=== PATIENT | female | born 1950 | race Two or more races ===

== ENCOUNTER 2017-12-14 14:13 | Outpatient (CLI) | payer OTHER ==
[~2017-12-14 14:13] MED LIST: ACETAMINOOPHEN-1 TAB PO; CIPRO750 MG PO; CLONAZEPAM1 MG PO; COLACE100 MG PO; NEURONTIN800 MG PO
== END 2017-12-14 17:00 | disposition home or self-care (01) ==
LOC: MRI 14:13
DX: M51.36 Other intervertebral disc degeneration, lumbar region (principal); Z98.1 Arthrodesis status
CPT/HCPCS: 72148

== ENCOUNTER 2019-07-16 06:15 | Day surgery (SDC) | payer OTHER ==
[~2019-07-16 06:15] MED LIST changes: +CYCLOBENZAPRINE10 MG PO; +LEVOTHYROXINE25 MCG PO; +TRAMADOL HCL50 MG PO
[2019-07-16] MEDS ORDERED: ULTRACET PO (10:19)
[2019-07-17] MEDS ORDERED: MACROBID 100 M100 MG PO (15:06)
== END 2019-07-16 13:42 | disposition home or self-care (01) ==
LOC: CIR.AMB 06:15
DX: R15.9 Full incontinence of feces (principal)
CPT/HCPCS: 64581; C1778

== ENCOUNTER 2019-07-17 12:23 | Emergency (ER) | payer OTHER ==
[~2019-07-17] VITALS: Ht 175.3 cm; Wt 68.0 kg
[~2019-07-17 12:23] MED LIST changes: +ULTRACET PO
[2019-07-17] MEDS ORDERED: MACROBID 100 M100 MG PO (15:06)
[2019-07-24] MEDS ORDERED: ENDOMETRIN100 MG PO (13:57)
[2019-07-24] MEDS ORDERED: GABAPENTIN800 MG PO (13:58)
== END 2019-07-17 15:19 | disposition home or self-care (01) ==
LOC: ER 12:23
DX: N39.0 Urinary tract infection, site not specified (principal)

== ENCOUNTER 2019-07-26 05:51 | Day surgery (SDC) | payer OTHER ==
[~2019-07-26 05:51] MED LIST changes: +ENDOMETRIN100 MG PO; +GABAPENTIN800 MG PO; +MACROBID 100 M100 MG PO
[2019-07-26] MEDS ORDERED: PERCOCET 5-3251 EACH PO (07:36)
[2019-08-02] MEDS ORDERED: ULTRACET PO (07:44)
[2019-08-02] MEDS ORDERED: PERCOCET 5-3251 EACH PO (07:55)
== END 2019-07-26 10:30 | disposition home or self-care (01) ==
LOC: CIR.AMB 05:51
DX: R15.9 Full incontinence of feces (principal)
CPT/HCPCS: 64590; C1767

== ENCOUNTER → 2019-08-02 | Day surgery (SDC) | payer OTHER ==
[~2019-08-02] MED LIST changes: +PERCOCET 5-3251 EACH PO
== END | disposition home or self-care (01) ==
LOC: CIR.AMB 05:15
DX: R15.9 Full incontinence of feces (principal)

== ENCOUNTER 2020-10-16 06:00 | Day surgery (SDC) | payer OTHER | END 2020-10-16 16:35 | disposition home or self-care (01) | LOC: CIR.AMB 06:00 | PROVIDERS: ATTEND Colon & Rectal Surgery | DX: R15.9 Full incontinence of feces (principal); Z20.828 Contact with and (suspected) exposure to other viral communicable diseases | CPT/HCPCS: 64581; C1778 ==

== ENCOUNTER 2021-08-09 10:54 | Outpatient (CLI) | payer OTHER | END 2021-08-09 11:16 | disposition home or self-care (01) | LOC: MRI 10:54 | DX: M51.37 Other intervertebral disc degeneration, lumbosacral region (principal); M54.16 Radiculopathy, lumbar region; N60.11 Diffuse cystic mastopathy of right breast; N60.12 Diffuse cystic mastopathy of left breast | CPT/HCPCS: 72148 ==

== ENCOUNTER 2022-01-31 08:49 | Outpatient (CLI) | payer OTHER | END 2022-01-31 08:55 | disposition home or self-care (01) | LOC: SONOGRAMA 08:49 | PROVIDERS: ATTEND Internal Medicine Gastroenterology | DX: K75.9 Inflammatory liver disease, unspecified (principal) ==

== ENCOUNTER 2022-11-11 10:43 | Outpatient (CLI) | payer OTHER | END 2022-11-11 10:47 | disposition home or self-care (01) | LOC: RAD 10:43 | PROVIDERS: ATTEND Physical Medicine & Rehabilitation | DX: M41.9 Scoliosis, unspecified (principal) ==

== ENCOUNTER 2023-12-20 08:13 | Outpatient (CLI) | payer OTHER | END 2023-12-20 08:20 | disposition home or self-care (01) | LOC: RX STUDY 08:13 | PROVIDERS: ATTEND Internal Medicine | DX: R13.10 Dysphagia, unspecified (principal) ==

== ENCOUNTER 2023-12-22 08:11 | Outpatient (CLI) | payer OTHER | END 2023-12-22 08:17 | disposition home or self-care (01) | LOC: SONOGRAMA 08:11 | DX: R19.00 Intra-abdominal and pelvic swelling, mass and lump, unspecified site (principal); Z88.1 Allergy status to other antibiotic agents ==